=== PATIENT | female | born 1955 | race Two or more races ===

== ENCOUNTER 2022-07-12 14:07 | Inpatient (IN) | payer OTHER ==
[~2022-07-12] VITALS: Ht 66 cm; Wt 66.2 kg
[~2022-07-12 14:07] MED LIST: METOPROLOL SUCC25 MG
[2022-07-12] MEDS ORDERED: TOPROL XL50 M1 PO (14:28)
[2022-07-12] MEDS ORDERED: LEVSIN0.125 MG PO (14:29)
--- NOTE | 2022-07-12 14:35 | NUR ---
PACIENTE ALERTA Y ORIENTADA REFIERE SENTIR DOLOR ABDOMINAL Y TENER HISTORIAL DE DIVERTICULITIS, RELACIONA DICHO DOLOR CON EL MISMO. SE MIDEN S/V, SE UBICA EN AREA DE OBSERVACION.
--- NOTE | 2022-07-12 15:25 | NUR ---
SE ORIENTA PTE SOBRE TX MEDICO EL CUAL REFIERE ENTENDER.SE LE EXTRAEN MUESTRAS BAJO MEDIDAS ASEPTICAS,SE CANALIZA Y SE ENTREGA CONTRASTE PARA CT,SE ORIENTA SOBRE EL MISMO Y SE NOTIFICA.
== END 2022-07-15 14:44 | disposition home or self-care (01) | DRG 392 ==
LOC: ER 14:07 → MEDI 22:27
PROVIDERS: ADMIT Specialist; ATTEND Specialist
PROC: BW21YZZ Computerized Tomography (CT Scan) of Abdomen and Pelvis using Other Contrast (ICD-10-PCS; principal; 2022-07-12)
DX: K57.32 Diverticulitis of large intestine without perforation or abscess without bleeding (principal); R10.32 Left lower quadrant pain; Z20.822 Contact with and (suspected) exposure to COVID-19

== ENCOUNTER 2022-07-16 11:47 | Emergency (ER) | payer OTHER ==
[~2022-07-16] VITALS: Ht 157.5 cm; Wt 65.8 kg
[~2022-07-16 11:47] MED LIST changes: +LEVSIN0.125 MG PO; +TOPROL XL50 M1 PO
== END 2022-07-16 16:10 | disposition home or self-care (01) ==
LOC: ER 11:47
DX: K57.90 Diverticulosis of intestine, part unspecified, without perforation or abscess without bleeding (principal)

== ENCOUNTER 2022-08-16 09:09 | Emergency (ER) | payer OTHER ==
[~2022-08-16] VITALS: Ht 127 cm; Wt 62.6 kg
== END 2022-08-16 14:14 | disposition home or self-care (01) ==
LOC: ER 09:09
DX: R10.32 Left lower quadrant pain (principal); R10.9 Unspecified abdominal pain; I10 Essential (primary) hypertension

== ENCOUNTER 2022-10-17 08:09 | Emergency (ER) | payer OTHER ==
[~2022-10-17] VITALS: Ht 157.5 cm; Wt 63.5 kg
== END 2022-10-17 14:56 | disposition home or self-care (01) ==
LOC: ER 08:09
DX: R10.9 Unspecified abdominal pain (principal); K57.32 Diverticulitis of large intestine without perforation or abscess without bleeding; K57.30 Diverticulosis of large intestine without perforation or abscess without bleeding
CPT/HCPCS: 36415; 74177; 99284; Q9965

== ENCOUNTER 2022-11-15 07:34 | Emergency (ER) | payer OTHER ==
[~2022-11-15] VITALS: Ht 160 cm; Wt 61.2 kg
== END 2022-11-15 14:50 | disposition home or self-care (01) ==
LOC: ER
PROVIDERS: Emergency Medicine
DX: K57.90 Diverticulosis of intestine, part unspecified, without perforation or abscess without bleeding (principal); I10 Essential (primary) hypertension
CPT/HCPCS: 36415; 74176; 96365; 96366; 99284; J0744; J3490

== ENCOUNTER 2022-12-15 07:30 | Emergency (ER) | payer OTHER ==
[~2022-12-15] VITALS: Ht 157.5 cm; Wt 59.9 kg
[2022-12-15 10:03] LABS: HEMATOCRIT 39.8 % (36.0-45.00); MEAN CELL VOLUME 101.1 fL (80.00-100.00); MEAN CORPUSCULAR HEMOGLOBIN 33.2 pg (27.00-32.0); MEAN CORPUSCULAR HGB CONC 32.8 g/dl (32.0-36.0); PLATELET COUNT 216 K/uL (150-450); RED BLOOD COUNT 3.93 M/uL (4.00-6.00); RED CELL DISTRIBUTION WIDTH 13.4 % (11.5-14.5)
[2022-12-15 10:19] LABS: URINE APPEARANCE Clear; URINE BILIRRUBIN Negative (NEGATIVE); URINE BLOOD Negative; URINE COLOR Yellow; URINE GLUCOSE Negative (NEGATIVE); URINE LEUKOCYTE Negative; URINE NITRATE Negative; URINE PROTEIN Negative (NEGATIVE); URINE UROBILINOGEN 0.2 E.U./dl
[2022-12-15 10:24] LABS: URINE EPITHELIAL CELLS 12.2 uL (0.0-38.8); URINE RBC 4.8 uL (0.0-20.8)
[2022-12-15 10:28] LABS: URINE BACTERIA 3.7 uL (0.0-1933); URINE WBC 0.9 uL (0.0-23.2)
[2022-12-15 10:55] LABS: CALCIUM 9.5 mg/dL (8.5-10.1); CREATININE SERUM 0.58 mg/dL (0.55-1.02); GFR 104.01; POTASSIUM 3.73 mEq/L (3.5-5.1)
== END 2022-12-15 12:31 | disposition left against medical advice (07) ==
LOC: ER 07:30
PROVIDERS: General Practice
DX: R10.9 Unspecified abdominal pain (principal); K57.90 Diverticulosis of intestine, part unspecified, without perforation or abscess without bleeding; I10 Essential (primary) hypertension
CPT/HCPCS: 36415; 74176; 96365; 99284; J0744

== ENCOUNTER 2023-01-05 09:30 | Inpatient (IN) | payer OTHER ==
[~2023-01-05] VITALS: Ht 157.5 cm; Wt 59.0 kg
[2023-01-10 15:45] LABS: HEMATOCRIT 35.6 % (36.0-45.00); HEMOGLOBIN 11.7 g/dL (12.0-15.00); MEAN CELL VOLUME 102.3 fL (80.00-100.00); MEAN CORPUSCULAR HEMOGLOBIN 33.7 pg (27.00-32.0); MEAN CORPUSCULAR HGB CONC 32.9 g/dl (32.0-36.0); PLATELET COUNT 196 K/uL (150-450); RED BLOOD COUNT 3.48 M/uL (4.00-6.00); RED CELL DISTRIBUTION WIDTH 14.2 % (11.5-14.5)
[2023-01-10 16:03] LABS: ALBUMIN 3.4 gm/dL (3.4-5.0); CALCIUM 8.9 mg/dL (8.5-10.1); CREATININE SERUM 0.54 mg/dL (0.55-1.02); GFR 112.61; PHOSPHOROUS 3.2 mg/dL (2.5-4.9); POTASSIUM 3.85 mEq/L (3.5-5.1)
[2023-01-11 07:57] LABS: HEMOGLOBIN 11.7 g/dL (12.0-15.00); MEAN CELL VOLUME 99.9 fL (80.00-100.00); MEAN CORPUSCULAR HEMOGLOBIN 34.3 pg (27.00-32.0); MEAN CORPUSCULAR HGB CONC 34.4 g/dl (32.0-36.0); PLATELET COUNT 187 K/uL (150-450); RED BLOOD COUNT 3.41 M/uL (4.00-6.00); RED CELL DISTRIBUTION WIDTH 14.1 % (11.5-14.5)
[2023-01-11 08:36] LABS: ALBUMIN 3.1 gm/dL (3.4-5.0); CALCIUM 8.5 mg/dL (8.5-10.1); CREATININE SERUM 0.5 mg/dL (0.55-1.02); GFR 123.06; PHOSPHOROUS 3.3 mg/dL (2.5-4.9); POTASSIUM 3.87 mEq/L (3.5-5.1)
[2023-01-12 08:16] LABS: HEMATOCRIT 33.2 % (36.0-45.00); HEMOGLOBIN 11.5 g/dL (12.0-15.00); MEAN CELL VOLUME 100.3 fL (80.00-100.00); MEAN CORPUSCULAR HEMOGLOBIN 34.8 pg (27.00-32.0); MEAN CORPUSCULAR HGB CONC 34.8 g/dl (32.0-36.0); PLATELET COUNT 176 K/uL (150-450); RED BLOOD COUNT 3.31 M/uL (4.00-6.00); RED CELL DISTRIBUTION WIDTH 14.4 % (11.5-14.5)
[2023-01-12] MEDS ORDERED: TRAM1TAB98 PO (08:22)
[2023-01-12] MEDS ORDERED: PEPCID AC20 MG PO (08:22)
[2023-01-12 08:33] LABS: CALCIUM 8.6 mg/dL (8.5-10.1); CREATININE SERUM 0.52 mg/dL (0.55-1.02); GFR 117.62; MAGNESIUM 2.2 mg/dL (1.8-2.4); PHOSPHOROUS 2.5 mg/dL (2.5-4.9); POTASSIUM 3.61 mEq/L (3.5-5.1)
== END 2023-01-12 12:20 | disposition home or self-care (01) | DRG 331 ==
LOC: SURH 01-10 08:30 → O/R 01-10 08:34 → SURH 01-10 09:30
PROVIDERS: Internal Medicine Geriatric Medicine; ADMIT Surgery; ATTEND Surgery
PROC: 0DBP4ZZ Excision of Rectum, Percutaneous Endoscopic Approach (ICD-10-PCS; 2023-01-10)
PROC: 0DJD8ZZ Inspection of Lower Intestinal Tract, Via Natural or Artificial Opening Endoscopic (ICD-10-PCS; 2023-01-10)
PROC: 0DTN4ZZ Resection of Sigmoid Colon, Percutaneous Endoscopic Approach (ICD-10-PCS; principal; 2023-01-10 08:30)
DX: K57.32 Diverticulitis of large intestine without perforation or abscess without bleeding (principal); R10.32 Left lower quadrant pain; I11.9 Hypertensive heart disease without heart failure; N73.6 Female pelvic peritoneal adhesions (postinfective); N99.4 Postprocedural pelvic peritoneal adhesions; D64.9 Anemia, unspecified

== ENCOUNTER 2023-03-29 10:18 | Emergency (ER) | payer OTHER ==
[~2023-03-29] VITALS: Ht 154.9 cm; Wt 58.1 kg
[~2023-03-29 10:18] MED LIST changes: +PEPCID AC20 MG PO; +TRAM1TAB98 PO
[2023-03-29 12:29] LABS: URINE APPEARANCE Clear; URINE BILIRRUBIN Negative (NEGATIVE); URINE BLOOD Negative; URINE COLOR Yellow; URINE GLUCOSE Negative (NEGATIVE); URINE LEUKOCYTE Negative; URINE NITRATE Negative; URINE PROTEIN Negative (NEGATIVE); URINE UROBILINOGEN 0.2 E.U./dl
[2023-03-29 12:33] LABS: URINE BACTERIA 49.1 uL (0.0-1933); URINE RBC 2.2 uL (0.0-20.8)
[2023-03-29 12:39] LABS: HEMOGLOBIN 13.7 g/dL (12.0-15.00); MEAN CORPUSCULAR HEMOGLOBIN 35.6 pg (27.00-32.0); MEAN CORPUSCULAR HGB CONC 34.3 g/dl (32.0-36.0); PLATELET COUNT 259 K/uL (150-450); RED BLOOD COUNT 3.85 M/uL (4.00-6.00); RED CELL DISTRIBUTION WIDTH 13.4 % (11.5-14.5)
[2023-03-29 12:45] LABS: URINE EPITHELIAL CELLS 1.3 uL (0.0-38.8); URINE WBC 1.2 uL (0.0-23.2)
[2023-03-29 13:13] LABS: ALBUMIN 4.2 gm/dL (3.4-5.0); BILIRUBIN TOTAL 0.65 mg/dL (0.3-1.2); CALCIUM 10.3 mg/dL (8.5-10.1); CREATININE SERUM 0.61 mg/dL (0.55-1.02); GFR 97.83; GLOBULINA 3.4 G/DL (2.4-3.5); POTASSIUM 4.09 mEq/L (3.5-5.1); TOTAL PROTEIN 7.6 gm/dL (6.4-8.2)
== END 2023-03-29 16:17 | disposition home or self-care (01) ==
LOC: ER 10:18
PROVIDERS: Emergency Medicine
DX: R10.84 Generalized abdominal pain (principal); I10 Essential (primary) hypertension